=== PATIENT | female | born 1945 | race Caucasian/White ===

== ENCOUNTER 2022-01-09 01:33 | Emergency (ER) | payer SELFPAY ==
[~2022-01-09] VITALS: Ht 172.7 cm; Wt 68.2 kg
[2022-01-09] MEDS ORDERED: BACITRACIN 0.9 GM PACKET OINTMENT TP ONE (01:45)
[2022-01-09] MEDS ORDERED: PERTUSS(ACELL),DIPH,TET VAC/PF 0.5 ML SYRINGE IM. ONE (01:45)
[2022-01-09] MEDS ORDERED: ACETAMINOPHEN 325 MG TABLET PO ONE (02:15)
[2022-01-09] MEDS ORDERED: DIVA-80 PO (02:23)
[2022-01-09] MEDS ORDERED: CLON-592 PO (02:23)
[2022-01-09] MEDS ORDERED: FLUO10CA24 PO (02:23)
[2022-01-09] MEDS ORDERED: MIRT30 PO (02:23)
[2022-01-09] MEDS ORDERED: ARIP2TAB27 PO (02:23)
[2022-01-09] MEDS ORDERED: MIRA25TA PO (02:23)
[2022-01-09] MEDS ORDERED: QUET400T54 PO (02:23)
[2022-01-09 08:27] VITALS: BP 130/78
== END 2022-01-09 08:45 | disposition home or self-care (01) ==
LOC: EMS 01:36
DX: S01.01XA Laceration without foreign body of scalp, initial encounter (principal); F41.9 Anxiety disorder, unspecified; F32.A Depression, unspecified; R56.9 Unspecified convulsions; G31.84 Mild cognitive impairment of uncertain or unknown etiology; Z66 Do not resuscitate; W05.0XXA Fall from non-moving wheelchair, initial encounter; Y93.89 Activity, other specified; Y92.89 Other specified places as the place of occurrence of the external cause; Y99.8 Other external cause status
CPT/HCPCS: 12002; 70450; 72125; 90471; 90715; 99285

== ENCOUNTER 2022-08-23 08:30 | Emergency (ER) | payer MEDICARE, OTHER ==
[~2022-08-23] VITALS: Ht 172.7 cm; Wt 72.7 kg
[~2022-08-23 08:30] MED LIST: ARIP2TAB27 PO; CLON-592 PO; DIVA500T53 PO; FLUO10CA24 PO; MIRA25TA PO; MIRT-149 PO; QUET400T54 PO
[2022-08-23 08:48] VITALS: TEMP 98.3
[2022-08-23] MEDS ORDERED: LIDOCAINE 5% TRANSDERMAL PATCH TD ONE (09:00)
[2022-08-23 14:55] VITALS: BP 129/87; PULSE 71; RESP 16
== END 2022-08-23 15:05 | disposition home or self-care (01) ==
LOC: EMS 08:47
DX: M54.9 Dorsalgia, unspecified (principal); R51.9 Headache, unspecified; F41.9 Anxiety disorder, unspecified; F32.A Depression, unspecified; W07.XXXA Fall from chair, initial encounter; Y93.89 Activity, other specified; Y92.89 Other specified places as the place of occurrence of the external cause; Y99.8 Other external cause status
CPT/HCPCS: 70450; 72125; 72128; 99284